=== PATIENT | female | born 1965 ===

== ENCOUNTER 2021-11-30 10:30 | Inpatient (IN) | payer OTHER ==
[~2021-11-30] VITALS: Ht 165.1 cm; Wt 77.1 kg
[2021-11-30] MEDS ORDERED: METFORMIN HCL500 M3 PO (13:27)
[2021-11-30] MEDS ORDERED: MOUNJARO2.5 MG/0.5 (13:27)
[2021-11-30] MEDS ORDERED: LEVOTHYROXINE25 MCG PO (13:27)
[2021-11-30] MEDS ORDERED: D3 + K2 DOTS 11 EACH PO (13:28)
[2021-12-03] MEDS ORDERED: ULTRACET PO (08:33)
[2021-12-03] MEDS ORDERED: RECTICARE30 GM TOP (08:34)
== END 2021-12-03 14:45 | disposition home or self-care (01) | DRG 376 ==
LOC: O/R 12-02 05:38 → SURG 12-02 05:38
PROVIDERS: ADMIT Surgery; ATTEND Surgery
PROC: 0DJD8ZZ Inspection of Lower Intestinal Tract, Via Natural or Artificial Opening Endoscopic (ICD-10-PCS; 2021-12-02)
PROC: 3E0T3BZ Introduction of Anesthetic Agent into Peripheral Nerves and Plexi, Percutaneous Approach (ICD-10-PCS; 2021-12-02)
PROC: 0DBP8ZZ Excision of Rectum, Via Natural or Artificial Opening Endoscopic (ICD-10-PCS; principal; 2021-12-02 07:00)
DX: C20 Malignant neoplasm of rectum (principal); D12.8 Benign neoplasm of rectum; K62.82 Dysplasia of anus; Z20.822 Contact with and (suspected) exposure to COVID-19